=== PATIENT | female | born 1985 | race Caucasian/White ===

== ENCOUNTER → 2016-06-01 | Outpatient (CLI) | payer OTHER ==
[2016-06-01 08:23] LABS: BASOPHIL % 0.6 % (0-2)
[2016-06-01 08:41] LABS: PLATELET COUNT 433 x10^3mcL (130-400); RED CELL DISTRIBUTION WIDTH 15.5 % (11.5-14.5)
[2016-06-01 09:00] LABS: rbc morphology (normal/abnorm) ABNORMAL (NORMAL)
[2016-06-01 09:09] LABS: ALBUMIN 3.6 g/dL (3.4-5.0); ALKALINE PHOSPHATASE 107 U/L (46-116); ALT/SGPT 31 U/L (14-59); AST/SGOT 18 U/L (15-37); BILIRUBIN DIRECT 0.18 mg/dL (0.0-0.2); CARBON DIOXIDE 27.1 mmol/L (21-32); CHLORIDE SERUM 103 mmol/L (98-107); CHOLESTEROL 179 mg/dL (<200); CHOLESTEROL/HDL RATIO 4.7; CREATININE SERUM 0.6 mg/dL (0.6-1.0); GFR1 > 60 mL/min; GLUCOSE SERUM 115 mg/dL (74-106); HDL CHOLESTEROL 38 mg/dL (40-60); POTASSIUM SERUM 3.9 mmol/L (3.5-5.1); SODIUM SERUM 139 mmol/L (136-145); TOTAL PROTEIN, SERUM 7.4 g/dL (6.4-8.2); TRIGLYCERIDES 186 mg/dL (<150)
== END | disposition home or self-care (01) ==
LOC: LB 08:06
PROVIDERS: Internal Medicine
DX: Z00.00 Encounter for general adult medical examination without abnormal findings (principal)

== ENCOUNTER → 2016-06-22 | Outpatient (CLI) | payer OTHER | END | disposition home or self-care (01) | LOC: LB 13:44 | DX: E11.9 Type 2 diabetes mellitus without complications (principal) ==